=== PATIENT | male | born 1985 | race Caucasian/White ===

== ENCOUNTER 2018-03-20 17:10 | Emergency (ER) | payer OTHER ==
[~2018-03-20] VITALS: Ht 182.9 cm; Wt 97.5 kg
[2018-03-20] MEDS ORDERED: NOHOMEMEDICATIONS (20:31)
[2018-03-20 20:50] VITALS: BP 137/77
[2018-03-21 15:11] LABS: HEPATITIS B SURFACE AG Negative (Negative)
[2018-03-22 02:07] LABS: HIV-1/HIV-2 ANTIBODY Non Reactive (Non Reactive)
== END 2018-03-20 20:50 ==
LOC: M.ERS 17:10
PROVIDERS: Family Medicine
DX: S00.83XA Contusion of other part of head, initial encounter (principal); Z01.89 Encounter for other specified special examinations; F32.9 Major depressive disorder, single episode, unspecified; F17.210 Nicotine dependence, cigarettes, uncomplicated; X58.XXXA Exposure to other specified factors, initial encounter; Y93.89 Activity, other specified; Y92.89 Other specified places as the place of occurrence of the external cause; Y99.8 Other external cause status